=== PATIENT | female | born 2000 | race Caucasian/White ===

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

== ENCOUNTER 2023-03-17 15:29 | Emergency (ER) | payer OTHER ==
[~2023-03-17] VITALS: Ht 172.7 cm; Wt 136.1 kg
[2023-03-17 16:06] VITALS: BP 173/103
== END 2023-03-17 16:12 | disposition home or self-care (01) ==
LOC: ER 15:29
DX: R05.9 Cough, unspecified (principal); Z20.828 Contact with and (suspected) exposure to other viral communicable diseases; Z88.0 Allergy status to penicillin
CPT/HCPCS: 99283

== ENCOUNTER 2023-04-03 10:09 | Emergency (ER) | payer OTHER ==
[~2023-04-03] VITALS: Ht 172.7 cm; Wt 136.1 kg
[2023-04-03 11:19] LABS: BASOPHILS ABSOLUTE AUTO 0.08 K/mm3 (0.00-0.23); BASOPHILS PERCENT AUTO 1 % (0-2); EOSINOPHILS ABSOLUTE AUTO 0.18 K/mm3 (0.00-0.68); EOSINOPHILS PERCENT AUTO 2 % (0-6); Hematocrit 44.5 % (33.0-51.0); Hemoglobin 14.4 g/dL (11.5-16.0); IMMATURE GRAN ABSOLUTE AUTO 0.03 K/mm3 (0.00-0.10); IMMATURE GRAN PERCENT AUTO 0 % (0-1); LYMPHOCYTES PERCENT AUTO 29 % (21-46); MONOCYTES ABSOLUTE AUTO 0.76 K/mm3 (0.16-1.47); MONOCYTES PERCENT AUTO 8 % (4-13); Mean Corpuscular HGB 29.3 pg (26.0-34.0); Mean Corpuscular HGB Conc 32.4 g/dL (31.5-36.5); Mean Corpuscular Volume 90 fL (80-100); Mean Platelet Volume 9.5 fL (9.1-12.4); NEUTROPHILS PERCENT AUTO 61 % (41-73); Platelet Count 351 K/mm3 (150-400); RDW Standard Deviation 43.1 fL (35.1-46.3); Red Blood Cell Count 4.92 M/mm3 (3.80-5.20); White Blood Cell Count 9.75 K/mm3 (4.00-11.30)
[2023-04-03 11:24] LABS: Source, Urine Voided
[2023-04-03] MEDS ORDERED: Mag Hydrox/AL Hydrox/Simeth 30 ML UDC PO ONE (11:30)
[2023-04-03 11:45] LABS: Albumin, Blood 3.6 g/dL (3.4-5.0); Albumin/Globulin Ratio 0.9 (0.8-1.8); Bilirubin, Total 0.4 mg/dL (0.1-1.0); Bun/Creatinine Ratio 19.8 (12.0-20.0); Calcium, Blood 9.6 mg/dL (8.5-10.1); Creatinine, Blood 0.71 mg/dL (0.40-1.00); Globulin, Blood 4.1 g/dL (2.2-4.0); Potassium, Blood 3.7 mmol/L (3.5-5.5); Total Protein, Blood 7.7 g/dL (6.4-8.2)
[2023-04-03 11:49] LABS: Appearance, Urine Hazy (Clear); Bilirubin, Urine Neg (Neg); Blood, Urine Neg (Neg); Color, Urine Yellow (P-Yellow); Glucose Qualitative, Urine Neg (Neg); Ketones, Urine Neg (Neg); Leukocyte Esterase, Urine 1+ (Neg); Nitrite, Urine Neg (Neg); Protein, Urine 1+ (Neg); Specific Gravity, Urine 1.025 (1.003-1.022); Urobilinogen, Urine NORM (Normal)
[2023-04-03 12:13] LABS: Bacteria Few /hpf; Red Blood Cells, Urine 0-2 /hpf (0-2); Squamous Epithelial Cells Few /hpf (Few)
[2023-04-03] MEDS ORDERED: Ondansetron HCl 2 MG / ML 2ML Vial IV ONE (12:35)
[2023-04-03] MEDS ORDERED: Atropine/Scopalam/Hyoscam/PB 5 ML UDC PO ONE (12:35)
[2023-04-03] MEDS ORDERED: ONDA4ODT MM (12:43)
[2023-04-03] MEDS ORDERED: FAMO20 PO (12:43)
[2023-04-03 13:31] VITALS: BP 122/99
== END 2023-04-03 13:31 | disposition home or self-care (01) ==
LOC: ER 10:09
PROVIDERS: Student in an Organized Health Care Education/Training Program
DX: R10.13 Epigastric pain (principal); R11.10 Vomiting, unspecified; Z88.0 Allergy status to penicillin
CPT/HCPCS: 80053; 81001; 83690; 84703; 85025; 87086; 96374; 99284-25; A9270; J2405

== ENCOUNTER 2023-04-06 09:21 | Emergency (ER) | payer OTHER ==
[~2023-04-06] VITALS: Ht 172.7 cm; Wt 136.1 kg
[~2023-04-06 09:21] MED LIST changes: +FAMO20 PO; +ONDA4ODT MM
[2023-04-06 10:37] LABS: BASOPHILS ABSOLUTE AUTO 0.07 K/mm3 (0.00-0.23); BASOPHILS PERCENT AUTO 1 % (0-2); EOSINOPHILS ABSOLUTE AUTO 0.09 K/mm3 (0.00-0.68); EOSINOPHILS PERCENT AUTO 1 % (0-6); Hematocrit 44.8 % (33.0-51.0); Hemoglobin 15.1 g/dL (11.5-16.0); IMMATURE GRAN ABSOLUTE AUTO 0.04 K/mm3 (0.00-0.10); IMMATURE GRAN PERCENT AUTO 0 % (0-1); LYMPHOCYTES ABSOLUTE AUTO 2.33 K/mm3 (0.84-5.20); LYMPHOCYTES PERCENT AUTO 19 % (21-46); MONOCYTES ABSOLUTE AUTO 0.63 K/mm3 (0.16-1.47); MONOCYTES PERCENT AUTO 5 % (4-13); Mean Corpuscular HGB 29.4 pg (26.0-34.0); Mean Corpuscular HGB Conc 33.7 g/dL (31.5-36.5); Mean Corpuscular Volume 87 fL (80-100); Mean Platelet Volume 9.4 fL (9.1-12.4); NEUTROPHILS ABSOLUTE AUTO 9.35 K/mm3 (1.96-9.15); NEUTROPHILS PERCENT AUTO 75 % (41-73); Platelet Count 378 K/mm3 (150-400); RDW Coefficient Variation 12.7 % (11.7-14.2); RDW Standard Deviation 40.9 fL (35.1-46.3); Red Blood Cell Count 5.13 M/mm3 (3.80-5.20); White Blood Cell Count 12.51 K/mm3 (4.00-11.30)
[2023-04-06 11:22] LABS: Albumin, Blood 3.9 g/dL (3.4-5.0); Albumin/Globulin Ratio 0.9 (0.8-1.8); Bilirubin, Total 0.4 mg/dL (0.1-1.0); Bun/Creatinine Ratio 9.8 (12.0-20.0); Calcium, Blood 9.6 mg/dL (8.5-10.1); Creatinine, Blood 0.82 mg/dL (0.40-1.00); Globulin, Blood 4.3 g/dL (2.2-4.0); Potassium, Blood 3.5 mmol/L (3.5-5.5); Total Protein, Blood 8.2 g/dL (6.4-8.2)
[2023-04-06 11:50] LABS: Source, Urine Clean Catch
[2023-04-06 11:55] LABS: Appearance, Urine Clear (Clear); Bilirubin, Urine Neg (Neg); Blood, Urine Neg (Neg); Color, Urine Yellow (P-Yellow); Glucose Qualitative, Urine Neg (Neg); Ketones, Urine Neg (Neg); Leukocyte Esterase, Urine 2+ (Neg); Nitrite, Urine Neg (Neg); Protein, Urine Neg (Neg); Urobilinogen, Urine NORM (Normal)
[2023-04-06] MEDS ORDERED: Ketorolac Tromethamine 30mg Vial IV ONE (12:00)
[2023-04-06 12:07] LABS: Bacteria Few /hpf; Red Blood Cells, Urine Not Seen /hpf (0-2); Squamous Epithelial Cells Few /hpf (Few)
[2023-04-06] MEDS ORDERED: Lidocaine 2% Viscous Soln 15 ML UDC PO ONE (12:50)
[2023-04-06] MEDS ORDERED: Mag Hydrox/AL Hydrox/Simeth 30 ML UDC PO ONE (12:50)
[2023-04-06] MEDS ORDERED: PROC5 PO (14:35)
[2023-04-06] MEDS ORDERED: PROM12.5S PR (14:35)
[2023-04-06] MEDS ORDERED: DOCU100 PO (14:35)
[2023-04-06] MEDS ORDERED: METO10 PO (14:35)
[2023-04-06 14:58] VITALS: BP 142/99
== END 2023-04-06 15:00 | disposition home or self-care (01) ==
LOC: ER 09:21
PROVIDERS: Physician Assistant; Student in an Organized Health Care Education/Training Program
DX: R10.30 Lower abdominal pain, unspecified (principal); R11.2 Nausea with vomiting, unspecified; K59.00 Constipation, unspecified; Z88.0 Allergy status to penicillin; Z79.899 Other long term (current) drug therapy
CPT/HCPCS: 76705; 80053; 81001; 81025; 85025; 87086; 96374; 99284-25; A9270; J1885

== ENCOUNTER 2024-03-26 04:56 | Emergency (ER) | payer OTHER ==
[~2024-03-26] VITALS: Ht 172.7 cm; Wt 136.1 kg
[~2024-03-26 04:56] MED LIST changes: +DOCU100 PO; +METO10 PO; +PROC5 PO; +PROM12.5S PR
[2024-03-26 05:19] VITALS: BP 135/97
[2024-03-26] MEDS ORDERED: ESCI20 PO (05:23)
[2024-03-26] MEDS ORDERED: OZEMPIC0.25 MG/02 SC (05:24)
[2024-03-26] MEDS ORDERED: APRI 28 DAY TA1 EACH PO (05:24)
[2024-03-26 05:40] LABS: CORONAVIRUS COVID-19 AG Negative (NEGATIVE); INFLUENZA A AG Negative (NEGATIVE); INFLUENZA B AG Negative (NEGATIVE)
== END 2024-03-26 05:57 | disposition home or self-care (01) ==
LOC: ER 04:56
PROVIDERS: Student in an Organized Health Care Education/Training Program
DX: J06.9 Acute upper respiratory infection, unspecified (principal); I10 Essential (primary) hypertension; Z88.0 Allergy status to penicillin; Z79.3 Long term (current) use of hormonal contraceptives; Z79.899 Other long term (current) drug therapy; Z79.85 Long-term (current) use of injectable non-insulin antidiabetic drugs
CPT/HCPCS: 87428-QW; 99283

== ENCOUNTER 2024-09-03 17:30 | Emergency (ER) | payer OTHER ==
[~2024-09-03] VITALS: Ht 172.7 cm; Wt 149.7 kg
[~2024-09-03 17:30] MED LIST changes: +APRI 28 DAY TA1 EACH PO; +ESCI20 PO; +OZEMPIC0.25 MG/02 SC
[2024-09-03 18:14] VITALS: BP 161/100
== END 2024-09-03 19:41 | disposition home or self-care (01) ==
LOC: ER 17:30
DX: T63.451A Toxic effect of venom of hornets, accidental (unintentional), initial encounter (principal); R22.0 Localized swelling, mass and lump, head; Z88.0 Allergy status to penicillin; Z79.85 Long-term (current) use of injectable non-insulin antidiabetic drugs; Z79.899 Other long term (current) drug therapy
CPT/HCPCS: 96372; 99282; A9270; J2919